=== PATIENT | male | born 1965 | race Caucasian/White ===

== ENCOUNTER 2022-07-05 09:06 | Outpatient (REF) | payer OTHER, SELFPAY ==
--- NOTE | ~2022-07-05 | XR_ITS ---
EXAMINATION: XR FOOT, RIGHT CLINICAL INFORMATION: Inflammatory polyarthropathy. COMPARISON: None available. TECHNIQUE: AP, lateral, and oblique views of the right foot. FINDINGS: Bony alignment and mineralization are normal. There is moderate osteoarthritic change of the tibiotalar joint. No fracture, dislocation or right ankle joint effusion is seen. Boehler's angle is normal. There is a tiny posterior calcaneal spur. There is mild osteoarthritic change of the first metatarsophalangeal joint. No focal soft tissue swelling, gas or foreign body is seen. XR/XR foot LT min 3V IMPRESSION: 1. No fracture, dislocation or right ankle joint effusion is seen. 2. There is osteoarthritic change of the right tibiotalar and first tarsometatarsal joints. 3. There are tiny calcaneal spurs. EXAMINATION: XR FOOT, LEFT CLINICAL INFORMATION: Inflammatory polyarthropathy. COMPARISON: None available. TECHNIQUE: AP, lateral, and oblique views of the left foot. FINDINGS: Bony alignment and mineralization are normal. There is moderate osteoarthritic change of the tibiotalar joint. There is no fracture, dislocation or left ankle joint effusion. Boehler's angle is normal. There are tiny posterior and plantar calcaneal spurs. There is mild osteoarthritic change of the first metatarsophalangeal joint. No focal soft tissue swelling, gas or foreign body is seen.
--- NOTE | ~2022-07-05 | XR_ITS ---
EXAMINATION: XR FOOT, RIGHT CLINICAL INFORMATION: Inflammatory polyarthropathy. COMPARISON: None available. TECHNIQUE: AP, lateral, and oblique views of the right foot. FINDINGS: Bony alignment and mineralization are normal. There is moderate osteoarthritic change of the tibiotalar joint. No fracture, dislocation or right ankle joint effusion is seen. Boehler's angle is normal. There is a tiny posterior calcaneal spur. There is mild osteoarthritic change of the first metatarsophalangeal joint. No focal soft tissue swelling, gas or foreign body is seen. XR/XR foot RT min 3V IMPRESSION: 1. No fracture, dislocation or right ankle joint effusion is seen. 2. There is osteoarthritic change of the right tibiotalar and first tarsometatarsal joints. 3. There are tiny calcaneal spurs. EXAMINATION: XR FOOT, LEFT CLINICAL INFORMATION: Inflammatory polyarthropathy. COMPARISON: None available. TECHNIQUE: AP, lateral, and oblique views of the left foot. FINDINGS: Bony alignment and mineralization are normal. There is moderate osteoarthritic change of the tibiotalar joint. There is no fracture, dislocation or left ankle joint effusion. Boehler's angle is normal. There are tiny posterior and plantar calcaneal spurs. There is mild osteoarthritic change of the first metatarsophalangeal joint. No focal soft tissue swelling, gas or foreign body is seen.
[2022-07-05 10:49] LABS: MANUAL DIFF FLAG NO
[2022-07-05 11:41] LABS: Basophils Percent Auto 0.5 % (0-2); Eosinophils Absolute Auto 0.2 X10*3/uL (0.0-0.4); Eosinophils Percent Auto 2.2 % (0-4); Hematocrit 45.8 % (42.0-52.0); Hemoglobin 14.9 g/dl (14.0-18.0); Imm Gran Abs Auto 0.02 X10*3/uL (0.00-0.03); Imm Gran Pct Auto 0.3 % (0.0-0.4); Lymphocytes Absolute Auto 1.9 X10*3/uL (1.2-4.9); Mean Corpuscular HGB Conc 32.5 g/dl (31.0-36.0); Mean Corpuscular Hemoglobin 28.2 pg (27.0-33.0); Mean Corpuscular Volume 86.7 fL (80.0-98.0); Mean Platelet Volume 9.7 fL (9.4-12.4); Monocytes Absolute Auto 0.6 X10*3/uL (0.1-1.2); Neutrophils Absolute Auto 4.9 x10*3/uL (2.0-8.3); Platelet Count 231 X10*3/uL (160-400); Red Blood Count 5.28 X10*6/uL (4.60-5.80); Red Cell Distribution Width 13.7 % (11.0-16.0); White Blood Count 7.6 X10*3/uL (4.8-10.8)
[2022-07-05 12:21] LABS: Alanine Aminotransferase 30 U/L (0-40); Albumin Level 4.5 g/dL (3.5-5.0); Alkaline Phosphatase 98 U/L (39-117); Anion Gap 13 (12-20); Aspartate Amino Transferase 24 U/L (5-37); Bilirubin Total 1.2 mg/dL (0.0-1.0); Blood Urea Nitrogen 23 mg/dL (9-16); C Reactive Protein 3.16 mg/dL (< or = 0.50); Calcium 9.8 mg/dL (8.4-10.2); Carbon Dioxide 25 mmol/L (22-29); Chloride 106 mmol/L (96-108); Estimated Glomerular Filt Rate > 60; Glucose Random 74 mg/dL (60-115); Potassium 4.4 mmol/L (3.3-5.1); Sodium 140 mmol/L (135-145); Total Protein 7.2 g/dL (6.5-8.0)
[2022-07-05 12:29] LABS: HBc Num1 0.08 S/CO (0.00-0.79); HBsAGNum1 0.26 S/CO (0.00-0.99); Hepatitis B Core Antibody Nonreactive (Nonreactive); Hepatitis B Surface Antigen Negative (Negative); ~HepC Num1 0.11 S/CO (0.00-0.79); ~Hepatitis A Antibody IgM Nonreactive (Nonreactive); ~Hepatitis B Surface Antibody NONREACTIVE (Nonreactive); ~Hepatitis C Antibody Nonreactive (Nonreactive)
[2022-07-05 13:07] LABS: Erythrocyte Sedimentation Rate 36 MM/HR (0-15)
[2022-07-08 07:39] LABS: TS Negative Control Passed; TS Panel A 2; TS Panel B 0; TS Positive Control Passed; TSpotTB Negative (Negative)
[2022-07-09 21:07] LABS: Prot Elec - Albumin 4.1 g/dL (3.8-4.8); Prot Elec - Alpha1 0.4 g/dL (0.2-0.3); Prot Elec - Beta 1 0.5 g/dL (0.4-0.6); Prot Elec - Beta 2 0.4 g/dL (0.2-0.5); Prot Elec - Total Protein 7.3 g/dL (6.1-8.1)
[2022-07-10 12:29] LABS: IgA 113 mg/dL (47-310); IgG 1174 mg/dL (600-1640); IgM 34 mg/dL (50-300)
== END 2022-07-05 09:07 | disposition home or self-care (01) ==
LOC: HO.XRAY 09:06
PROVIDERS: PCP Nurse Practitioner Adult Health; Visit Provider Student in an Organized Health Care Education/Training Program
DX: M06.4 Inflammatory polyarthropathy (principal); Z11.7 Encounter for testing for latent tuberculosis infection; Z11.59 Encounter for screening for other viral diseases; Z79.899 Other long term (current) drug therapy
CPT/HCPCS: 36415; 73630; 80053; 82784; 84165; 85025; 85652; 86140; 86334; 86481; 86704; 86706; 86709; 86803; 87340

== ENCOUNTER 2022-12-20 14:07 | Outpatient (AMB) | payer OTHER, SELFPAY ==
[2022-12-20 14:11] VITALS: BP 122/82; PULSE 87; TEMP 36.9; O2SAT 97; BMI 29.4
--- NOTE | 2022-12-20 14:11 | A.OFFVIS_ITS ---
Intake Vital Signs 12/20/22 14:11 Height 5 ft 10 in Weight 205 lb 4.006 oz BMI 29.4 BP 122/82 Blood Pressure Location Rt brachial Position Sitting Pulse 87 Pulse Source Pulse Oximeter Temp 98.4 F Temp Source Skin Pulse Oximetry (%) 97 Oxygen Delivery Method Room Air Intake Visit Reasons: 2 Month Follow up after xray and labs Intake Note: Here to follow up on labs and x-rays Blood Bank Specialist Required: No Accompanied by: Self / Same As Patient Allergies sulfasalazine Allergy (Mild, Verified 12/20/22 14:14) Unknown Medication List - Last Reconciled 12/20/22 by Herman Aguirre MD folic acid 3 mg PO DAILY indomethacin ER 75 mg PO BID lisinopril 7.5 mg PO DAILY metformin ER 500 mg PO TID omeprazole 20 mg PO Q OTHER DAY rosuvastatin 2.5 mg PO DAILY testosterone 10 mg/0.5 gram /actuation 20 mg topical DAILY trazodone 50 mg PO BEDTIME HPI HPI Comments History of Present Illness Details 57-year-old male with seronegative spond yloarthropathy returns for follow-up. States that his right knee swelling has resolved. Continues to have right 4th toe pain and swelling. Morning stiffness of his lower extremities. He is having some right shoulder stiffness as well. No skin rashes. Taking indomethacin twice daily. Initial history: This is a 56-year-old male who presents for evaluation of a seronegative spondyloarthropathy. 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 Patient states that he was diagnosed with a seronegative arthritis around 15 years ago around 2007. Stated that it has always affected his lower extremities, his knees, feet and toes. He was following up with Dr. Patel He was initially started on Indocin Twice daily. Then methotrexate was added. He was taking 6 tabs once weekly for a long period of time. When patient was evaluated by Dr. Mike methotrexate dose was increased to 8 tabs once weekly. In the sent was reduced to 1 tab daily Since then patient has been having mildly elevated LFTs and elevated bilirubin. MTX was discontinued and patient was started on hydroxychloroquine. He mentions that he was evaluated by Gastroenterology and had a liver ultrasound. He is not quite sure what they found. He states that he took hydroxychloroquine for about 1 week and it did not help. Since April patient started taking Indocin Twice daily for worsening pain in his knees and feet. Today patient is complaining of some swelling of his right 4th toe and right knee effusion. He denies any symptoms suggestive of inflammatory back pain. Denies history of uveitis. No history suggestive of IBD. No history of psoriasis. 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 Review of Systems [facility] [place] Reports arthralgias, Reports joint swelling and Reports stiffness Physical Exam Vital Signs: Last Vital Signs Temp 98.4 F 12/20/22 14:11 Pulse 87 12/20/22 14:11 BP 122/82 12/20/22 14:11 Pulse Ox 97 12/20/22 14:11 Oxygen Delivery Method Room Air 12/20/22 14:11 BMI result Body Mass Index 29.4 Const General: cooperative, healthy appearing and comfortable Nutritional Appearance: overweight Orientation/consciousness: patient oriented x3 Limitations: no limitations HEENT Head: Yes normocephalic and Yes atraumatic Eyes Other: squint Resp Effort & Inspection: normal respiratory effort and able to speak in complete sentences Auscultation: clear to auscultation bilaterally Skin General skin exam: no rashes or lesions noted Neuro General: patient oriented x3 Extrem Other: Osteoarthritic changes of both hands with no active synovitis Normal range of motion of both elbows without pain Negative empty can test bilateral shoulders No right knee effusion today. No pain with full flexion No ankle pain or swelling Right 4th toe dactylitis mildly tender, right 2nd toe swelling without tenderness No nail pitting today Results Reviewed Results Reviewed: Labs 12/2021? CRP/ESR normal? CMP unremarkable except for mildly elevated total bilirubin at 1.6? CBC unremarkable except for elevated hemoglobin at 17.7 Platelets 149 Labs 01/2020? RF/CCP/ROCKY all negative Assessment & Plan Assessment & Plan (1) Psoriatic arthritis: Comment: dx around 2007 indocin 75 mg bid & MTX 6 tabs 2020: increased to 8 tabs which caused bilirubinemia & indocin reduced to qd. 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 Continues to have dactylitis on exam. Labs show high inflammatory markers. Will need to restart DMARDs. Patient's disease was stable on methotrexate but developed transaminitis last year which resolved when methotrexate was discontinued. Discussed risks and benefits of TNF inhibitors. Patient agreed to proceed. Will start prior authorization for Enbrel Will prescribe a short course of prednisone for current flare. Advised patient not to combine Indocin with prednisone Labs before next visit in 3 months Plan I spent 27 minutes reviewing patient's chart, evaluating patient, ordering diagnostic workup, counseling patient and documenting in the chart Orders: Orders Complete Blood Count Auto Diff 3 Months L40.50 - Arthropathic psoriasis, unspecified Comprehensive Met. Panel 3 Months L40.50 - Arthropathic psoriasis, unspecified C Reactive Protein 3 Months L40.50 - Arthropathic psoriasis, unspecified Erythrocyte Sedimentation Rate 3 Months L40.50 - Arthropathic psoriasis, unspecified HLA B27 3 Months M45.9 - Ankylosing spondylitis of unspecified sites in spine Medications: New prednisone 10 mg PO DAILY 21 tabs 0RF Coding Level of Care Code Est Pt Level 4 (08234) Diagnoses Psoriatic arthritis L40.50
== END 2022-12-20 14:59 | disposition home or self-care (01) ==
PROVIDERS: PCP Nurse Practitioner Adult Health; Visit Provider Student in an Organized Health Care Education/Training Program
DX: L40.50 Arthropathic psoriasis, unspecified (principal)
CPT/HCPCS: 99214

== ENCOUNTER → 2022-12-20 14:07 | Outpatient (BNVA) | payer OTHER, SELFPAY | PROVIDERS: PCP Nurse Practitioner Adult Health; Visit Provider Student in an Organized Health Care Education/Training Program ==

== ENCOUNTER 2023-03-20 14:36 | Outpatient (AMB) | payer OTHER, SELFPAY ==
--- NOTE | 2023-03-20 14:51 | MHC.OFFVIS ---
Intake Vital Signs 03/20/23 14:54 Height 5 ft 10 in Weight 206 lb 2.115 oz BMI 29.6 BP 110/92 H Blood Pressure Location Lt brachial Position Sitting Pulse 94 Pulse Source Pulse Oximeter Temp 97.5 F Temp Source Skin Pulse Oximetry (%) 94 Oxygen Delivery Method Room Air Intake Visit Reasons: Spondy Intake Note: Pt last seen 12/20/22 presents today for follow up and test results. Prednisone prn and Enbrel Metal Sheet Roller Operator Required: No Accompanied by: Self / Same As Patient Allergies sulfasalazine Allergy (Mild, Verified 03/20/23 14:55) Unknown Medication List - Last Reconciled 03/20/23 by Herman Aguirre MD Enbrel SureClick (etanercept) 50 mg subcut QWEEK NS folic acid 3 mg PO DAILY lisinopril 7.5 mg PO DAILY metformin ER 500 mg PO TID omeprazole 20 mg PO Q OTHER DAY rosuvastatin 2.5 mg PO DAILY testosterone 10 mg/0.5 gram /actuation 20 mg topical DAILY trazodone 50 mg PO BEDTIME HPI HPI Comments History of Present Illness Details 57-year-old male with seronegative spondyloarthropathy returns for follow-up. Has been on Enbrel for about 3 months now. States that he is doing much better overall. 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 Has been having some right shoulder pain recently but nothing severe. Denies any other joint pain. Has not been using any prednisone. He was taking indomethacin once daily until about last week and he ran out. About a week ago he was having progressive cough and he went to the emergency room, he was found to have pneumonia and was prescribed antibiotics with resolution. Initial history: This is a 56-year-old male who presents for evaluation of a seronegative spondyloarthropathy. 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 Patient states that he was diagnosed with a seronegative arthritis around 15 years ago around 2007. Stated that it has always affected his lower extremities, his knees, feet and toes. He was following up with Dr. Patel He was initially started on Indocin Twice daily. Then methotrexate was added. He was taking 6 tabs once weekly for a long period of time. When patient was evaluated by Dr. Mike methotrexate dose was increased to 8 tabs once weekly. In the sent was reduced to 1 tab daily Since then patient has been having mildly elevated LFTs and elevated bilirubin. MTX was discontinued and patient was started on hydroxychloroquine. He mentions that he was evaluated by Gastroenterology and had a liver ultrasound. He is not quite sure what they found. He states that he took hydroxychloroquine for about 1 week and it did not help. Since April patient started taking Indocin Twice daily for worsening pain in his knees and feet. Today patient is complaining of some swelling of his right 4th toe and right knee effusion. He denies any symptoms suggestive of inflammatory back pain. Denies history of uveitis. No history suggestive of IBD. No history of psoriasis. 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 Review of Systems [facility] [place] arthralgias Physical Exam Vital Signs: Last Vital Signs Temp 97.5 F 03/20/23 14:54 Pulse 94 03/20/23 14:54 BP 110/92 H 03/20/23 14:54 Pulse Ox 94 03/20/23 14:54 Oxygen Delivery Method Room Air 03/20/23 14:54 BMI result Body Mass Index 29.6 Const General: cooperative, healthy appearing and comfortable Nutritional Appearance: overweight Orientation/consciousness: patient oriented x3 Limitations: no limitations HEENT Head: Yes normocephalic and Yes atraumatic Eyes Other: squint Resp Effort & Inspection: normal respiratory effort and able to speak in complete sentences Auscultation: clear to auscultation bilaterally Skin General skin exam: no rashes or lesions noted Neuro General: patient oriented x3 Extrem Other: Osteoarthritic changes of both hands with no active synovitis Normal range of motion of both elbows without pain Positive empty can test and positive speed's test on the right, negative infraspinatus test bilaterally No active synovitis today No nail pitting today Results Reviewed Results Reviewed: Labs 12/2021? CRP/ESR normal? CMP unremarkable except for mildly elevated total bilirubin at 1.6? CBC unremarkable except for elevated hemoglobin at 17.7 Platelets 149 Labs 01/2020? RF/CCP/ROCKY all negative Assessment & Plan Assessment & Plan (1) Psoriatic arthritis: Comment: dx around 2007 indocin 75 mg bid & MTX 6 tabs 2020: increased to 8 tabs which caused bilirubinemia & indocin reduced to qd. 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 Doing much better overall on Enbrel 50 mg once weekly. Has not been using Indocin. Recent labs showed elevated inflammatory markers but patient had pneumonia at the time Continue Enbrel 50 mg once weekly Labs before next visit in 4 months (2) On termite treater helper drug therapy: Code(s): Z79.899 - Other shelter (current) drug therapy Plan: Advised patient to hold Enbrel for any sign of infection (3) Immunization counseling: Code(s): Z71.85 - Encounter for immunization safety counseling Plan: Patient is up-to-date on new COVID booster and flu vaccine for this season. Plan I spent 27 minutes reviewing patient's chart, evaluating patient, ordering diagnostic workup, counseling patient and documenting in the chart Orders: Orders Complete Blood Count Auto Diff 4 Months L40.50 - Arthropathic psoriasis, unspecified Erythrocyte Sedimentation Rate 4 Months L40.50 - Arthropathic psoriasis, unspecified Comprehensive Met. Panel 4 Months L40.50 - Arthropathic psoriasis, unspecified C Reactive Protein 4 Months L40.50 - Arthropathic psoriasis, unspecified Medications: Refilled Enbrel SureClick (etanercept) 50 mg subcut QWEEK 4 mL 2RF NS Coding Level of Care Code Est Pt Level 4 (43526) Diagnoses Psoriatic arthritis L40.50 On termite treater helper drug therapy Z79.899 Immunization counseling Z71.85
[2023-03-20 14:54] VITALS: BP 110/92; PULSE 94; TEMP 36.4; O2SAT 94; BMI 29.6
== END 2023-03-20 15:17 | disposition home or self-care (01) ==
PROVIDERS: PCP Nurse Practitioner Adult Health; Visit Provider Student in an Organized Health Care Education/Training Program
DX: L40.50 Arthropathic psoriasis, unspecified (principal); Z79.899 Other long term (current) drug therapy; Z71.85 Encounter for immunization safety counseling
CPT/HCPCS: 99214

== ENCOUNTER → 2023-03-20 14:36 | Outpatient (BNVA) | payer OTHER, SELFPAY | PROVIDERS: PCP Nurse Practitioner Adult Health; Visit Provider Student in an Organized Health Care Education/Training Program ==

== ENCOUNTER 2023-07-23 14:32 | Outpatient (AMB) | payer OTHER, SELFPAY ==
[2023-07-23 14:35] VITALS: BP 124/72; PULSE 85; O2SAT 94; BMI 30.9
--- NOTE | 2023-07-23 14:35 | A.OFFVIS_ITS ---
Vital Signs 07/23/23 14:35 Height 5 ft 10 in Weight 215 lb 2.738 oz BMI 30.9 BP 124/72 Blood Pressure Location Rt brachial Position Sitting Pulse 85 Pulse Source Pulse Oximeter Pulse Oximetry (%) 94 Oxygen Delivery Method Room Air Intake Visit Reasons: PsA Intake Note: Pt last seen 03/20/23 presents today for follow up and test results. New pcp Sena Diaz [facility] Chef Concierge Required: No Accompanied by: Self / Same As Patient Allergies sulfasalazine Allergy (Mild, Verified 07/23/23 14:39) Canker sores Medication List - Last Reconciled 07/23/23 by Herman Aguirre MD Enbrel SureClick (etanercept) 50 mg subcut QWEEK NS folic acid 3 mg PO DAILY lisinopril 7.5 mg PO DAILY metformin ER 500 mg PO TID rosuvastatin 2.5 mg PO DAILY testosterone 10 mg/0.5 gram /actuation 20 mg topical DAILY trazodone 50 mg PO BEDTIME HPI Comments Details: 57-year-old male with seronegative spondyloarthropathy returns for follow-up. On Enbrel 50 mg weekly. Offers no complaints. Denies any joint pain or swelling. Does not take any NSAIDs. 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 Denies any recent illnesses Initial history: This is a 56-year-old male who presents for evaluation of a seronegative spondyloarthropathy. 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 Patient states that he was diagnosed with a seronegative arthritis around 15 years ago around 2007. Stated that it has always affected his lower extremit ies, his knees, feet and toes. He was following up with Dr. Patel He was initially started on Indocin Twice daily. Then methotrexate was added. He was taking 6 tabs once weekly for a long period of time. When patient was evaluated by Dr. Mike methotrexate dose was increased to 8 tabs once weekly. In the sent was reduced to 1 tab daily Since then patient has been having mildly elevated LFTs and elevated bilirubin. MTX was discontinued and patient was started on hydroxychloroquine. He mentions that he was evaluated by Gastroenterology and had a liver ultrasound. He is not quite sure what they found. He states that he took hydroxychloroquine for about 1 week and it did not help. Since April patient started taking Indocin Twice daily for worsening pain in his knees and feet. Today patient is complaining of some swelling of his right 4th toe and right knee effusion. He denies any symptoms suggestive of inflammatory back pain. Denies history of uveitis. No history suggestive of IBD. No history of psoriasis. 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 [place] Denies arthralgias, Denies joint swelling and Denies stiffness Physical Exam Vital Signs: Last Vital Signs Pulse 85 07/23/23 14:35 BP 124/72 07/23/23 14:35 Pulse Ox 94 07/23/23 14:35 Oxygen Delivery Method Room Air 07/23/23 14:35 BMI result Body Mass Index 30.9 Const General: cooperative, healthy appearing and comfortable Nutritional Appearance: overweight Orientation/consciousness: patient oriented x3 Limitations: no limitations HEENT Head: Yes normocephalic and Yes atraumatic Eyes Other: squint Resp Effort & Inspection: normal respiratory effort and able to speak in complete sentences Auscultation: clear to auscultation bilaterally Skin General skin exam: no rashes or lesions noted Neuro General: patient oriented x3 Extrem Other: Osteoarthritic changes of both hands with no active synovitis Normal range of motion of both elbows without pain Negative empty can test, infraspinatus test, Speed's test and lift-off test bilaterally No active synovitis today No nail pitting Results Reviewed Results Reviewed: Labs 12/2021? CRP/ESR normal? CMP unremarkable except for mildly elevated total bilirubin at 1.6? CBC unremarkable except for elevated hemoglobin at 17.7 Platelets 149 Labs 01/2020? RF/CCP/ROCKY all negative Assessment & Plan Assessment & Plan (1) Psoriatic arthritis: Comment: dx around 2007 indocin 75 mg bid & MTX 6 tabs 2020: increased to 8 tabs which caused bilirubinemia & indocin reduced to qd. 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 Doing quite well on Enbrel 50 mg weekly. Has not been using any NSAIDs Continue Enbrel 50 mg once weekly Labs before next visit in 4 months (2) On [facility] drug therapy: Code(s): Z79.899 - Other rodent exterminator (current) drug therapy Category: Medical Plan: Advised patient to hold Enbrel for any sign of infection Plan I spent 27 minutes reviewing patient's chart, evaluating patient, ordering diagnostic workup, counseling patient and documenting in the chart Orders: Orders Complete Blood Count Auto Diff 4 Months L40.50 - Arthropathic psoriasis, unspecified Comprehensive Met. Panel 4 Months L40.50 - Arthropathic psoriasis, unspecified C Reactive Protein 4 Months L40.50 - Arthropathic psoriasis, unspecified Erythrocyte Sedimentation Rate 4 Months L40.50 - Arthropathic psoriasis, unspecified
== END 2023-07-23 14:51 | disposition home or self-care (01) ==
LOC: HO.RHE 14:33
PROVIDERS: PCP Nurse Practitioner Adult Health; Visit Provider Student in an Organized Health Care Education/Training Program
DX: L40.50 Arthropathic psoriasis, unspecified (principal); Z79.899 Other long term (current) drug therapy
CPT/HCPCS: 99214

== ENCOUNTER → 2023-07-23 14:33 | Outpatient (BNVA) | payer OTHER, SELFPAY | PROVIDERS: PCP Nurse Practitioner Adult Health; Visit Provider Student in an Organized Health Care Education/Training Program ==

== ENCOUNTER 2023-11-27 14:13 | Outpatient (AMB) | payer OTHER, SELFPAY ==
--- NOTE | 2023-11-27 14:20 | A.OFFVIS_ITS ---
Vital Signs 11/27/23 14:24 Height 5 ft 10 in Weight 211 lb 13.828 oz BMI 30.4 BP 124/82 Blood Pressure Location Rt brachial Position Sitting Pulse 83 Pulse Source Pulse Oximeter Pulse Oximetry (%) 96 Oxygen Delivery Method Room Air Intake Visit Reasons: RA Intake Note: Patient presents for RA. Allergies sulfasalazine Allergy (Mild, Verified 07/23/23 14:39) Canker sores Medication List - Last Reconciled 11/27/23 by Herman Aguirre MD Enbrel SureClick (etanercept) 50 mg subcut QWEEK NS folic acid 3 mg PO DAILY lisinopril 7.5 mg PO DAILY metformin ER 500 mg PO TID rosuvastatin 2.5 mg PO DAILY testosterone 10 mg/0.5 gram /actuation 20 mg topical DAILY trazodone 50 mg PO BEDTIME HPI Comments Details: 58-year-old male with seronegative spondyloarthropathy returns for follow-up. On Enbrel 50 mg weekly. Offers no complaints. Denies any joint pain or swelling. Does not take any NSAIDs. 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 Denies any recent illnesses Initial history: This is a 56-year-old male who presents for evaluation of a seronegative spondyloarthropathy. 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 Patient states that he was diagnosed with a seronegative arthritis around 15 years ago around 2007. Stated that it has always affected his lower extremities, his knees, feet and toes. He was following up with Dr. Patel He was initially started on Indocin Twice daily. Then methotrexate was added. He was taking 6 tabs once weekly for a long period of time. When patient was evaluated by Dr. Mike methotrexate dose was increased to 8 tabs once weekly. In the sent was reduced to 1 tab daily Since then patient has been having mild ly elevated LFTs and elevated bilirubin. MTX was discontinued and patient was started on hydroxychloroquine. He mentions that he was evaluated by Gastroenterology and had a liver ultrasound. He is not quite sure what they found. He states that he took hydroxychloroquine for about 1 week and it did not help. Since April patient started taking Indocin Twice daily for worsening pain in his knees and feet. Today patient is complaining of some swelling of his right 4th toe and right knee effusion. He denies any symptoms suggestive of inflammatory back pain. Denies history of uveitis. No history suggestive of IBD. No history of psoriasis. 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 Review of Systems Musc Denies arthralgias, Denies joint swelling and Denies stiffness Psych Reports abnormal sleep pattern Physical Exam Vital Signs: Last Vital Signs Pulse 83 11/27/23 14:24 BP 124/82 11/27/23 14:24 Pulse Ox 96 11/27/23 14:24 Oxygen Delivery Method Room Air 11/27/23 14:24 BMI result Body Mass Index 30.4 Const General: cooperative, healthy appearing and comfortable Nutritional Appearance: overweight Orientation/consciousness: patient oriented x3 Limitations: no limitations HEENT Head: Yes normocephalic and Yes atraumatic Eyes Other: squint Resp Effort & Inspection: normal respiratory effort and able to speak in complete sentences Auscultation: clear to auscultation bilaterally Skin General skin exam: no rashes or lesions noted Neuro General: patient oriented x3 Extrem Other: Osteoarthritic changes of both hands with no active synovitis Normal range of motion of both elbows without pain Negative empty can test, infraspinatus test, Speed's test and lift-off test bilaterally No active synovitis today No nail pitting Results Reviewed Results Reviewed: Labs 12/2021? CRP/ESR normal? CMP unremarkable except for mildly elevated total bilirubin at 1.6? CBC unremarkable except for elevated hemoglobin at 17.7 Platelets 149 Labs 01/2020? RF/CCP/ROCKY all negative Assessment & Plan Assessment & Plan (1) Psoriatic arthritis: Comment: dx around 2007 indocin 75 mg bid & MTX 6 tabs 2020: increased to 8 tabs which caused bilirubinemia & indocin reduced to qd. 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 Doing quite well on Enbrel 50 mg weekly. Has not been using any NSAIDs Continue Enbrel 50 mg once weekly Labs before next visit in 6 months (2) On intermediate frame tender drug therapy: Code(s): Z79.899 - Other fdc (current) drug therapy Category: Medical Plan: Advised patient to hold Enbrel for any sign of infection (3) High hematocrit: Code(s): R71.8 - Other abnormality of red blood cells Category: Medical Plan: Discussed with PCP. Consider a sleep study to rule out ZOILA Plan I spent 27 minutes reviewing patient's chart, evaluating patient, ordering diagnostic workup, counseling patient and documenting in the chart Orders: Orders Comprehensive Met. Panel 6 Months L40.50 - Arthropathic psoriasis, unspecified C Reactive Protein 6 Months L40.50 - Arthropathic psoriasis, unspecified Erythrocyte Sedimentation Rate 6 Months L40.50 - Arthropathic psoriasis, unspecified T Spot TB 6 Months Z11.7 - Encounter for testing for latent tuberculosis infection Hepatitis A,B,C Profile 6 Months Z11.59 - Encounter for screening for other viral diseases Complete Blood Count Auto Diff 6 Months L40.50 - Arthropathic psoriasis, unspecified Coding Level of Care Code Est Pt Level 4 (30984) Diagnoses Psoriatic arthritis L40.50 On intermediate frame tender drug therapy Z79.899 High hematocrit R71.8
[2023-11-27 14:24] VITALS: BP 124/82; PULSE 83; O2SAT 96; BMI 30.4
== END 2023-11-27 14:38 | disposition home or self-care (01) ==
PROVIDERS: PCP Nurse Practitioner Adult Health; Visit Provider Student in an Organized Health Care Education/Training Program
DX: L40.50 Arthropathic psoriasis, unspecified (principal); Z79.899 Other long term (current) drug therapy; R71.8 Other abnormality of red blood cells
CPT/HCPCS: 99214

== ENCOUNTER → 2023-11-27 14:13 | Outpatient (BNVA) | payer OTHER, SELFPAY | PROVIDERS: PCP Nurse Practitioner Adult Health; Visit Provider Student in an Organized Health Care Education/Training Program ==

== ENCOUNTER 2024-04-29 14:43 | Outpatient (AMB) | payer OTHER, SELFPAY ==
--- NOTE | 2024-04-29 14:50 | MHC.OFFVIS ---
Vital Signs 04/29/24 14:51 Height 5 ft 10 in Weight 216 lb 0.848 oz BMI 31.0 BP 128/88 Blood Pressure Location Rt brachial Position Sitting Pulse 78 Pulse Source Pulse Oximeter Intake Visit Reasons: PsA Intake Note: Patient last seen by Doctor Herman Aguirre on 11/27/23. Presents today for PsA follow up and test results. Construction Supervisor Required: No Accompanied by: Self / Same As Patient Allergies sulfasalazine Allergy (Mild, Verified 04/29/24 14:55) Canker sores Medication List - Last Reconciled 04/29/24 by Althea Treviño MD Enbrel SureClick (etanercept) 50 mg subcut QWEEK NS folic acid 3 mg PO DAILY lisinopril 7.5 mg PO DAILY metformin ER 500 mg PO TID rosuvastatin 2.5 mg PO DAILY testosterone 10 mg/0.5 gram /actuation 20 mg topical DAILY trazodone 50 mg PO BEDTIME HPI Comments Details: Patient is a 58-year-old male with hypertension, diabetes and hyperlipidemia who is here today for follow up of psoriatic arthritis/seronegative spondyloarthritis Interval History: Patient last seen 11/27/[address] Aguirre. At that time patient was doing well and had no complaints. Tolerating Enbrel well and was in remission. Today, patient continues to be in remission but has a new complaint his left middle finger has been sticking. Requiring him to manually extend it. Rheumatologic History: dx around 2007 indocin 75 mg bid & MTX 6 tabs 2020: increased to 8 tabs which caused bilirubinemia & indocin reduced to qd. 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 Review of Systems Const Details: Review of Systems Constitutional: Denies fever, chills, weight loss ENT: Denies vision changes, eye pain or eye redness, dental caries, dry mouth GI: Denies nausea, vomiting, diarrhea, abdominal pain, change in BM Pulm: Denies SOB, AGUERO, hemoptysis, wheezing Cards: Denies chest pain, palpitations Skin: Denies Raynaud's, rash, nail changes, photosensitivity, JOURNEYMAN LINEMAN: Denies headaches, weakness, paresthesias, recurrent falls MSK: as per HPI All other systems reviewed and are unremarkable except noted above Physical Exam Vital Signs: Last Vital Signs Pulse 78 04/29/24 14:51 BP 128/88 04/29/24 14:51 BMI result Body Mass Index 31.0 Vital signs reviewed Physical Examination CONSTITUITIONAL Patient alert and cooperative. Well appearing and in no apparent painful distress HEENT Conjunctiva and sclera clear. ?Pupils equal round and reactive to light. ?No lymphadenopathy. ? CHEST/RESPIRATORY SYSTEM Normal respiratory effort and able to speak in complete sentences. ?Clear to auscultation bilaterally. ?No crackles, rales, rhonchi, wheezes heard. CARDIAC SYSTEM Regular rate and rhythm. ?S1 and S2 heard no murmurs. ?Radial pulses intact bilaterally MSK Hands: ?Good insulation worker interior surface strength bilaterally. No deformities noted. ?No synovitis noted to the MCPs, PIPs or DIPs. ?No tenderness to palpation of these joints. Tender palpable nodule over the A1 jalen Wrists: ?Full range of motion at the wrists without pain. ?No tenderness to palpation or synovitis noted to the wrists. Elbows: Full range of motion without pain. No tenderness, weakness, swelling, increased warmth or erythema. Shoulders: Full range of motion without pain. No tenderness, weakness, swelling, increased warmth or erythema. Hips: Full range of motion without pain. Hip bursa: No tenderness to palpation Knees: ?Full range of motion. ?No tenderness, swelling, increased warmth or erythema.?No effusion or crepitations Ankles: Full range of motion. ?No tenderness, swelling, increased warmth or erythema.? Feet: ?Negative squeeze test. ?No tenderness to palpation or swelling of the MTPs. Tender points:?No tenderness to palpation of the bilateral trapezius, supraspinatus, greater trochanters, anterior costochondral junctions, bilateral gluteal areas, bilateral suboccipital muscle insertions SKIN Skin intact without rashes. Office Procedures AMB Joint Injection/Aspiration Joint Injection/Aspiration Details: Procedure was explained to the patient and consent was obtained. ? The area of interest was identified and confirmed with patient. ?This was subsequently cleaned with chlorhexidine x3. ? The area was then anesthetized using ethyl chloride spray. 20 mg Kenalog with 0.1 cc 1% lidocaine was injected without issue. ?Minimal to no bleeding. ?Patient tolerated procedure. Primary Site: left trigger finger Prep: site was prepped using aseptic technique and ethochloride spray was applied Injected: 20 mg of, Kenalog and 1% plain lidocaine (0.1 cc) Approach Used: other Procedure: The patient tolerated the procedure well Coding 11909 - Bicipital Groove Injection Procedure code (CPT) selection complete Office Meds lidocaine (PF) 10 mg/mL (1 %) injection solution Performing Provider: Althea Treviño MD Performing [place] [facility] [place] [facility] Administered by: Althea Treviño MD on 04/29/24 16:24 Dose Route Admin Location Dispensed Lot Number Expiration Date [facility] Financial Wellness Coach 0.1 mg Infiltration Left trigger finger 2 mL [id number] 07/01/26 56272-453-95 [facility] Kenalog 40 mg/mL suspension for injection Performing Provider: Althea Treviño MD Performing Location: [facility] [place] [facility] Administered by: Althea Treviño MD on 04/29/24 16:24 Dose Route Admin Location Dispensed Lot Number Expiration Date [facility] Financial Wellness Coach 20 mg Tendon Sheath Inj. Left trigger finger 1 mL [id number] 09/30/25 [address]-2 [employer] Results Reviewed Results Reviewed: Results from lab [facility] reviewed 04/28/24 Assessment & Plan Assessment & Plan (1) Psoriatic arthritis: Comment: dx around 2007 indocin 75 mg bid & MTX 6 tabs 2020: increased to 8 tabs which caused bilirubinemia & indocin reduced to qd. MTX DC'd due to bilirubinemia HCQ started 01/21 ineffective but patient only took it for 1 week 04/24 Indocin increased back to 75 bid Enbrel 12/23 effective indocin DC Code(s): L40.50 - Arthropathic psoriasis, unspecified Category: Medical Plan: #Seronegative spondyloarthroapthy/PsA Patient with seronegative spondyloarthropathy currently in remission on Enbrel. Monitoring labs within range Plan - Enbrel 50mg SC weekly - RTC 4 months - Labs prior to visit: CBC, CMP, ESR, CRP (2) Trigger finger, left middle finger: Code(s): M65.332 - Trigger finger, left middle finger Plan: #Flexor tenosynovitis Status post steroid injection Recommend splinting for 2-4 weeks (3) On mcc drug therapy: Code(s): Z79.899 - Other longwall shearer operator (current) drug therapy Category: Medical Plan: #Long-term Use of TNF Inhibitors: Enbrel Discussed with the patient the benefits and risks of TNF inhibitors for the management of the rheumatic condition Benefits include reduce pain, maintenance of remission and reduction of flares as well as ?progression of the disease Risks include injection sites/infusion reactions, serious infections (such as bacterial infections, opportunistic infections), malignancy, delaminating syndromes, autoimmune phenomena, CHF exacerbations, palmar plantar psoriasis and cytopenias Recommended rotating injection sites, and holding medication during and for up to 1 week after resolution of a febrile illness or open skin wound Plan I spent 20 minutes reviewing the record and labs, taking a history, examining the patient, discussing the treatment plan and documenting in the medical record Orders: Orders AMB Joint Injection/Aspiration Today M65.332 - Trigger finger, left middle finger Coding Level of Care Code Est Pt Level 3 (44453) Complex EM visit Add On G2211 Diagnoses Psoriatic arthritis L40.50 Trigger finger, left middle finger M65.332 On mcc drug therapy Z79.899 CPT Codes Coding - Joint 1: 30570 - Bicipital Groove Injection ([id number])
[2024-04-29 14:51] VITALS: BP 128/88; PULSE 78; BMI 31.0
--- OUTSIDE RECORDS SUMMARY | 2024-04-29 15:42 | XMS_ITS | Continuity of Care Document ---
Author Organization [facility] Address [address] ARIEL Ramos Phone [phone] Care Team Providers Care Cheese Processor Name Role Phone Sena Diaz CNP Care Team Information Sewing Machine Operator Paper Bags U navailable JENNIFER RANDALL M.D. Care Team Information Rec eiver Unavailable Sena Diaz CNP Primary Care Physician Unavailab le Problems Active Problems Provider Date Metabolic disease Jennifer Randall M.D. Onset: 12/08/2013 Hyperlipidemia Jennifer Randall M.D. Onset: 0 12/08/2013 Essential hypertension Jennifer Randall M.D. O nset: 12/08/2013 Testicular hypofunction Jennifer Randall M.D. Onset: 03/16/2014 Social History Type Date Description Comments Sex Unknown Allergies and adverse reactions Active Allergies Criticality Reaction Severity Comments Date Sulfasalazine Unable to assess criticality sores mouth 12/08/2013 Pravastatin Unable to assess criticality rash 12/08/2013 Rosuvastatin Unable to assess criticality ^LFT mild 02/09/2021 Medications Active Medications SIG Qnty Indications Order ing Provider Date Rosuvastatin Dhemjdb39fl Tablets 1 tab by mouth every evening 90tabs E78.5 Jennifer Randall M.D. 01/07/2024 Qvkvqfjhfkxy84.25mg/A ct (1.62%) Gel apply 2 pumps to shoulder area every day 150gm Jennifer Randall M.D. 11/16/2023 Billeo 2w/Device Kit use as directed. 1units E88.9 Jennifer Randall M.D. 06/03/2018 Onetouch Ultrasoft LancetsMisc 1 use lancet 1 times daily for blood sugar 100units R73.9 Jennifer Randall M.D. 06/03/2018 E88.9 Onetouch Ultra BlueStrips 1 strip every day 100units E88.9 Jennifer marina M.D. 06/03/2018 R73.9 Freestyle Lite Meter Use as Directed 1units E88.81 Jennifer Randall M.D. 06/01/2018 Inlzfnoxjn4lq Tablets Take 1 1/2 Tablets By Mouth Every Day 135tabs Jennifer Randall M.D. 01/24/2018 Trazodone CQG60li Tablets take 1 tablet by mouth everyday at bedtime 90tabs I10 Jennifer Randall M.D. 04/16/2017 Metformin HCL UE870hz Tablets ER 24HR take 3 tablets by mouth every day 270tabs E88.9 Jennifer Randall M.D. 07/13/2016 Folic Umca1pk Tablets take 3 tablets by mouth every day 270tabs Jennifer Randall M.D. Multivitamin AdultsTablets 1 tab by mouth every day E88.9 Unknown Aspirin Adult Low Dais26nl Tablets DR 1 by mouth every day E88.9 Unknown Fish Oil [place]-43354aa Capsules 2/d[Vzc516/Wwe759 per pill] E78.5 Unknown Enbrel Onbpxqjkz74rc/ml Solution Auto-Inject Unknown /0 000 History Medications Cxiruvzqsgux26uo/5GM (1%) Gel Apply 2 Packets (10 Grams) To Skin Once Daily as Directed 900gm E29.1 Jennifer Randall M.D. 01/18/2023 - 08/29/2023 Wuzstdzbwehu49ql/Act (2%) Gel Apply 3 Pumps To Skin Every Day 180gm Jennifer Randall M.D. 04/26/2022 - 01/07/2024 Rosuvastatin Eaktawb4dg Tablets 1 tab by mouth every day 90tabs E78.5 Jennifer Randall M.D. 08/17/2021 - 01/07/2024 Rosuvastatin Aahcpev1vb Tablets 1/2 by mouth every day 45tabs E78.Carloz Randall M.D. 07/08/2019 - 02/09/2021 Atorvastatin Parqzau47dw Tablets take 1/2 tablet by mouth daily 45tabs E78.Carloz Randall M.D. 08/01/2018 - 07/08/2019 Freestyle Lite Blood Glucose Monitoring SystemDevice d 1units E88.9 Jennifer Randall M.D. 04/11/2018 - 06/03/2018 Xporzrvguxqz06qk/5GM (1%) Gel Apply 2 Packets (10 Grams) To Skin Once Daily as Directed 900gm E29.1 Jennifer Randall M.D. 11/10/2014 - 08/23/2022 Gyqebyswylho21gu/5GM (1%) Gel apply 7.5 grams to skin once daily as directed 135units E29.1 Jennifer Randall M.D. 11/10/2014 - 07/15/2015 Rdfnyhvdzm50sy Tablets Take 1 Tablet Every Day 90tabs Jennifer Randall M.D. 04/21/2014 - 01/24/2018 Metformin TFU916ke Tablets Take 1 Tablet By Mouth 3 Times A Day 90tabs E88.9 Jennifer Randall M.D. 03/16/2014 - 07/13/2016 Atorvastatin Olfozge65ss Tablets take 1/2 tablet by mouth daily 45tabs E78.Carloz Randall M.D. 03/16/2014 - 01/24/2018 Xcatjfndnihs92os/5GM Gel apply 7.5 grams to skin once daily as directed 90d 257.2 Jennifer Randall M.D. 03/11/2014 - 11/10/2014 Usrderlsii62ps Tablets 1 by mouth every day 90tabs Jennifer Randall M.D. 12/08/2013 - 12/14/2013 Methotrexate2.5mg Tablets 5->8->0->2-3Ta bs By Mouth Weekly Unknown - 08/29/[address] Nehemias bruce - 12/14/2013 Indomethacin ER75mg Capsules ER 2->1 tab by mouth every day Unknown - 08/29/2023 Ouefrclfor53je Tablets Unknown - 12/08/2013 Pravastatin Cvflxw34xi Tablets Take 1 Tablet By Mouth Once A Day Unknown - 12/08/2013 Gpjpbv078502Kibj/GM Powder Charito Mccurdy - 12/08/2013 Clotrimazole/Betamethasone Dipropionate1-0.05% Cream Charito Castellon - 12/08/2013 Ixxglcf2405-19 Suspension Unkn own - 12/08/2013
== END 2024-04-29 15:37 | disposition home or self-care (01) ==
PROVIDERS: PCP Nurse Practitioner Adult Health; Visit Provider Student in an Organized Health Care Education/Training Program
DX: L40.50 Arthropathic psoriasis, unspecified (principal); M65.332 Trigger finger, left middle finger; Z79.899 Other long term (current) drug therapy
CPT/HCPCS: 20550; 99213

== ENCOUNTER → 2024-04-29 14:43 | Outpatient (BNVA) | payer OTHER, SELFPAY | PROVIDERS: PCP Nurse Practitioner Adult Health; Visit Provider Student in an Organized Health Care Education/Training Program | DX: L40.50 Arthropathic psoriasis, unspecified (principal); M65.332 Trigger finger, left middle finger; Z79.899 Other long term (current) drug therapy | CPT/HCPCS: 20550; J2003; J3300 ==

== ENCOUNTER 2024-08-28 13:42 | Outpatient (AMB) | payer OTHER, SELFPAY ==
[2024-08-28 13:46] VITALS: BP 122/72; PULSE 71; O2SAT 98; BMI 29.1
--- NOTE | 2024-08-28 13:46 | MHC.OFFVIS ---
Vital Signs 08/28/24 13:46 Height 5 ft 10 in Weight 202 lb 9.677 oz BMI 29.1 BP 122/72 Blood Pressure Location Lt brachial Position Sitting Pulse 71 Pulse Source Pulse Oximeter Pulse Oximetry (%) 98 Oxygen Delivery Method Room Air Intake Visit Reasons: PsA Intake Note: Patient presents for follow up on PSA. 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 At that time was in remission on Enbrel monotherapy. He was complaining about left middle finger trigger finger and received a steroid injection at that time. Recommended splinting for a few weeks to ensure proper healing. Doing well, Trigger finger improved No new joint complaints Platelets low on blood work, no gum bleeding or petichiae noticed Currently seeing ophthal for eye disease ?related to DM Rheumatologic History: dx around 2007 indocin 75 mg bid & MTX 6 tabs 2020: increased to 8 tabs which caused bilirubinemia & indocin reduced to qd. 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 Abnormal liver enzymes Foot pain Tendinitis of finger Knee joint effusion Derangement, knee Hyperlipidemia Family History Father Gout Mother Osteoarthritis Social History Household Members: Spouse Alcohol intake: current Patient Tobacco Use Status: Never used Tobacco Current occupational status: employed 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 Review of Systems Const Details: Review of Systems Constitutional: Denies fever, chills, weight loss ENT: Denies vision changes, eye pain or eye redness, dental caries, dry mouth GI: Denies nausea, vomiting, diarrhea, abdominal pain, change in BM Pulm: Denies SOB, AGUERO, hemoptysis, wheezing Cards: Denies chest pain, palpitations Skin: Denies Raynaud's, rash, nail changes, photosensitivity, HEALTHCARE ECONOMICS CONSULTANT: Denies headaches, weakness, paresthesias, recurrent falls MSK: as per HPI All other systems reviewed and are unremarkable except noted above Physical Exam Vital Signs: BMI result Body Mass Index 29.1 Vital signs reviewed Physical Examination CONSTITUITIONAL Patient alert and cooperative. Well appearing and in no apparent painful distress HEENT Conjunctiva and sclera clear. ?Pupils equal round and reactive to light. ?No lymphadenopathy. ? CHEST/RESPIRATORY SYSTEM Normal respiratory effort and able to speak in complete sentences. ?Clear to auscultation bilaterally. ?No crackles, rales, rhonchi, wheezes heard. CARDIAC SYSTEM Regular rate and rhythm. ?S1 and S2 heard no murmurs. ?Radial pulses intact bilaterally MSK Hands: ?Good sintering press operator strength bilaterally. No deformities noted. ?No synovitis noted to the MCPs, PIPs or DIPs. ?No tenderness to palpation of these joints. Wrists: ?Full range of motion at the wrists without pain. ?No tenderness to palpation or synovitis noted to the wrists. Elbows: Full range of motion without pain. No tenderness, weakness, swelling, increased warmth or erythema. Shoulders: Full range of motion without pain. No tenderness, weakness, swelling, increased warmth or erythema. Hips: Full range of motion without pain. Hip bursa: No tenderness to palpation Knees: ?Full range of motion. ?No tenderness, swelling, increased warmth or erythema.?No effusion or crepitations Ankles: Full range of motion. ?No tenderness, swelling, increased warmth or erythema.? Feet: ?Negative squeeze test. ?No tenderness to palpation or swelling of the MTPs. Tender points:?No tenderness to palpation of the bilateral trapezius, supraspinatus, greater trochanters, anterior costochondral junctions, bilateral gluteal areas, bilateral suboccipital muscle insertions SKIN Skin intact without rashes. Results Reviewed Results Reviewed: Lab zohreh results reviewed WBC 5.7 Hb 13.9 HCt 42.3 Plt 95 Cr 0.9 EGFR 100 AST/ALT 45/77 (previous 33/) ESR/CRP 3/<1 Assessment & Plan Assessment & Plan (1) Psoriatic arthritis: Comment: dx around 2007 indocin 75 mg bid & MTX 6 tabs 2020: increased to 8 tabs which caused bilirubinemia & indocin reduced to qd. MTX DC'd due to bilirubinemia HCQ started 01/21 ineffective but patient only took it for 1 week 04/24 Indocin increased back to 75 bid Enbrel 12/23 effective indocin DC Code(s): L40.50 - Arthropathic psoriasis, unspecified Category: Medical Plan: #Seronegative spondyloarthroapthy/PsA Patient with seronegative spondyloarthropathy currently in remission on Enbrel. 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: Code(s): Z79.899 - Other snf (current) drug therapy Category: Medical Plan: #Long-term Use of TNF Inhibitors: Enbrel Discussed with the patient the benefits and risks of TNF inhibitors for the management of the rheumatic condition Benefits include reduce pain, maintenance of remission and reduction of flares as well as ?progression of the disease Risks include injection sites/infusion reactions, serious infections (such as bacterial infections, opportunistic infections), malignancy, delaminating syndromes, autoimmune phenomena, CHF exacerbations, palmar plantar psoriasis and cytopenias Recommended rotating injection sites, and holding medication during and for up to 1 week after resolution of a febrile illness or open skin wound Plan I spent 20 minutes reviewing the record and labs, taking a history, examining the patient, discussing the treatment plan and documenting in the medical record Orders: Orders Platelet Count (Citrate) 4 Weeks D69.6 - Thrombocytopenia, unspecified Complete Blood Count Auto Diff 5 Months L40.50 - Arthropathic psoriasis, unspecified Comprehensive Met. Panel 5 Months L40.50 - Arthropathic psoriasis, unspecified C Reactive Protein 5 Months L40.50 - Arthropathic psoriasis, unspecified Erythrocyte Sedimentation Rate 5 Months L40.50 - Arthropathic psoriasis, unspecified Coding Level of Care Code Est Pt Level 3 (54654) Complex EM visit Add On G2211 Diagnoses Psoriatic arthritis L40.50 Trigger finger, left middle finger M65.332 Thrombocytopenia D69.6 On snf drug therapy Z79.899
--- OUTSIDE RECORDS SUMMARY | 2024-08-28 13:48 | XMS_ITS | Continuity of Care Document ---
Author Organization [facility] Address [address] ARIEL Ramos Phone [phone] Care Team Providers Care Supply Chain Development Manager Name Role Phone Sena Diaz CNP Care Team Information Firepot Operator And Tender U navailable JENNIFER RANDALL M.D. Care Team [...] SIG Qnty Indications Order ing Provider Date Yooztndncumfikbwkyc58 .5mg Tablets 1 tab by mouth every day 90tabs I10 Jennifer Randall M.D. 08/04/2024 Rosuvastatin Jfrzmug76cv Tablets 1 tab by mouth every evening 90tabs E78.5 Jennifer Randall M.D. 01/07/2024 Dgwjsgkghats51.25mg/A ct (1.62%) Gel apply 1 pumps to shoulder area every day 150gm Jennifer Randall M.D. 11/16/2023 Onetouch Ultra 2w/Device Kit use as directed. 1units E88.9 Jennifer Randall M.D. 06/03/2018 Onetouch Ultrasoft LancetsMisc 1 use lancet 1 times daily for blood sugar 100units R73.9 Jennifer Randall M.D. 06/03/2018 E88.9 Onetouch Ultra BlueStrips 1 strip every day 100units E88.9 Jennifer marina M.D. 06/03/2018 R73.9 Freestyle Lite Meter Use as Directed 1units E88.81 Jennifer Randall M.D. 06/01/2018 Trazodone RHE96rp Tablets take 1 tablet by mouth everyday at bedtime 90tabs I10 Jennifer Randall M.D. 04/16/2017 Metformin HCL XG586hx Tablets ER 24HR take 3 tablets by mouth every day 270tabs E88.9 Jennifer Randall M.D. 07/13/2016 Multivitamin AdultsTablets 1 tab by mouth every day E88.9 Unknown Enbrel Wotxvygju86zz/ml Solution Auto-Inject Unknown / 000 Fish Oil [id number] Capsules 2/d[Clh396/Qsn357 per pill] E78.5 Unknown Aspirin Adult Low Buzl24cc Tablets DR 1 by mouth every day E88.9 Unknown Folic Qulk4cp Tablets take 3 tablets by mouth every day 270tabs Jennifer Randall M.D. History Medications Vvvdntziyy65mz Tablets 1 tab by mouth every day 90tabs Jennifer Randall M.D. 05/14/2024 - 08/04/2024 Pfbwjpcxawck12fn/5GM (1%) Gel Apply 2 Packets (10 Grams) To Skin Once Daily as Directed 900gm E29.1 Jennifer Randall M.D. 01/18/2023 - 08/29/2023 Ntnmkdtahydv43st/Act (2%) Gel Apply 3 Pumps To Skin Every Day 180gm Jennifer Randall M.D. 04/26/2022 - 01/07/2024 Rosuvastatin Vugdozi8nb Tablets 1 tab by mouth every day 90tabs E78.5 Jennifer Randall M.D. 08/17/2021 - 01/07/2024 Rosuvastatin Knyejsv8mq Tablets 1/2 by mouth every day 45tabs E78.Carloz Randall M.D. 07/08/2019 - 02/09/2021 Atorvastatin Zkrkhbb34iv Tablets take 1/2 tablet by mouth daily 45tabs E78.5 Jennifer Randall M.D. 08/01/2018 - 07/08/2019 Freestyle Lite Blood Glucose Monitoring SystemDevice [facility] 1units E88.9 Jennifer Randall M.D. 04/11/2018 - 06/03/2018 Jacptilbai7bl Tablets Take 1 1/2 Tablets By Mouth Every Day 135tabs Jennifer Randall M.D. 01/24/2018 - 05/14/2024 Qekcfydwfqsg22xi/5GM (1%) Gel Apply 2 Packets (10 Grams) To Skin Once Daily as Directed 900gm E29.1 Jennifer Randall M.D. 11/10/2014 - 08/23/2022 Rvahezgzyuqb96ro/5GM (1%) Gel apply 7.5 grams to skin once daily as directed 135units E29.1 Jennifer Randall M.D. 11/10/2014 - 07/15/2015 Mryquvhulw57cj Tablets Take 1 Tablet Every Day 90tabs Jennifer Randall M.D. 04/21/2014 - 01/24/2018 Metformin YIC591lo Tablets Take 1 Tablet By Mouth 3 Times A Day 90tabs E88.9 Jennifer Randall M.D. 03/16/2014 - 07/13/2016 Atorvastatin Bpyaxpw47xy Tablets take 1/2 tablet by mouth daily 45tabs E78.5 Jennifer Randall M.D. 03/16/2014 - 01/24/2018 Xawlrifmfloh56nq/5GM Gel apply 7.5 grams to skin once daily as directed 90d 257.2 Jennifer Randall M.D. 03/11/2014 - 11/10/2014 Tzogxonepl68vc Tablets 1 by mouth every day 90tabs Jennifer Randall M.D. 12/08/2013 - 12/14/2013 Methotrexate2.5mg Tablets 5->8->0->2-3Tabs By Mouth Weekly Unknown - 08/29/[address] Unknown - 12/14/2013 Indomethacin ER75mg Capsules ER 2->1 tab by mouth every day Unknown - 08/29/2023 Ulzcwwtdju21ix Tablets Unknown - 12/08/2013 Pravastatin Usseiu19lf Tablets Take 1 Tablet By Mouth Once A Day Unknown - 12/08/2013 Zypcbz116973Agmh/GM Powder Charito Castellon - 12/08/2013 Clotrimazole/Betametha sone Dipropionate1-0.05% Cream Charito Castellon - 12/08/2013 Waglfpz1006-94 Suspension Unknown - 12/08/2013
== END 2024-08-28 14:08 | disposition home or self-care (01) ==
LOC: HO.RHE 13:42
PROVIDERS: PCP Nurse Practitioner Adult Health; Visit Provider Student in an Organized Health Care Education/Training Program
DX: L40.50 Arthropathic psoriasis, unspecified (principal); M65.332 Trigger finger, left middle finger; D69.6 Thrombocytopenia, unspecified; Z79.899 Other long term (current) drug therapy
CPT/HCPCS: 99213

== ENCOUNTER → 2024-08-28 13:42 | Outpatient (BNVA) | payer OTHER, SELFPAY | PROVIDERS: PCP Nurse Practitioner Adult Health; Visit Provider Student in an Organized Health Care Education/Training Program ==